=== PATIENT | female | born 1965 | race Caucasian/White ===

== ENCOUNTER → 2023-10-05 08:08 | Outpatient (CLI) | payer OTHER, SELFPAY ==
--- NOTE | 2023-10-05 | DI.MG.S_ITS ---
BILATERAL DIGITAL SCREENING MAMMOGRAM 3D/2D WITH CAD WITH AUGMENTATION: 10/05/2023 CLINICAL: Routine screening. Comparison is made to exams dated: 11/25/2018 mammogram, 03/15/2017 mammogram, and 07/02/2015 mammogram - Outside facility. There are scattered areas of fibroglandular density in both breasts (category b / 25%-50% glandular tissue). Current study was also evaluated with a Computer Aided Detection (CAD) system. Bilateral breast implants are stable. No significant masses, calcifications, or other findings are seen in either breast. There has been no significant interval change. IMPRESSION: NEGATIVE There is no mammographic evidence of malignancy. A 1 year screening mammogram is recommended. Based on the Tyrer Cuzick model (a risk assessment model) the patient's lifetime risk is 6.7% and her 10 year risk is 2.3%. According to the ACR, ACS, and NCCN guidelines, an annual breast MRI exam along with mammogram is recommended if the patient's lifetime risk is 20% or greater. This exam was interpreted at Station ID: [id number]. NOTE: For mammograms, a report in lay terms will be sent to the patient. Approximately 15% of breast malignancies will not be visualized mammographically. In the management of a palpable breast mass, a negative mammogram must not discourage biopsy of a clinically suspicious lesion. Electronically Signed By: Faye zaragoza/shay:10/05/2023 10:05:35 letter sent: Normal Exam ACR BI-RADS Category 1: Negative [id number]
== END ==
PROVIDERS: Referring Provider Family Medicine; Visit Provider Family Medicine
DX: Z12.31 Encounter for screening mammogram for malignant neoplasm of breast (principal); R92.323 Mammographic fibroglandular density, bilateral breasts
CPT/HCPCS: 77063; 77067

== ENCOUNTER 2024-06-08 14:30 | Outpatient (RCR) | payer OTHER, SELFPAY ==
--- NOTE | 2024-05-22 15:22 | PT.OIE ---
Current Diagnoses Sprain of unspecified ligament of left ankle, subsequent encounter (05/22/24) Visit Care Team Role Provider Type Stew Desai MD Attending Provider Non-Staff Family Provider Primary Care Provider Referring Provider Specialty: Family Practice Address: [facility] [address], [address] Email: Physical Therapy Initial Evaluation PT-OP-A Visit Information Start: 05/19/24 12:53 Freq: Status: Active Protocol: Document 05/22/24 07:30 NM (Rec: 05/22/24 08:15 NM [id number]) Out-Patient Physical Therapy Visit Information Visit Information Visit Type Initial Evaluation Visit Start Time 07:33 Visit Stop Time 08:13 Visit Number Evaluation Information Evaluation Date 05/22/24 Precautions Precautions PMH fracture of L 5th metatarsal PT-OP-B Current Condition Start: 05/19/24 12:53 Freq: Status: Active Protocol: Document 05/22/24 07:30 NM (Rec: 05/22/24 08:15 NM [id number]) Current Condition History of Current Condition Onset Date March 06, 2024 Current Complaints pain, walking, standing History of Current Condition Pt presents with L 5th met fracture. She has not worn the boot in 2 weeks. Had has repeat imaging. Pt fractured her foot after walking off of a curb at a [employer] tour in [place] with inversion motion. Pt had to walk a mile back to her hotel following fall. Pt iced and wrap. Pt was assessed for fracture 03/15 with imaging. She was placed in a boot, but pt declined using crutches. Pt has been wearing hiking boots. 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 Pt has had repeat imaging, showing healing; however, pt reports that she was told to continue wearing the boot if she has pain. She has not been wearing boot for about 2 weeks. Pt is a and lives alone. She reports that she is having difficulty with R hip pain (sitting, driving) s/ p wearing boot, walking (w/o boot), standing. Pt has several stairs in her home but reports no difficulty with stairs. Pt walked 2 airports yesterday in girlie boots, which have caused increased pain. PT-OP-C Subjective Start: 05/19/24 12:53 Freq: Status: Active Protocol: Document 05/22/24 07:30 NM (Rec: 05/22/24 08:15 NM [id number]) OP-PT Subjective Patient Comments Patient Comments pt consents to participate in evaluation Patient Questionnaires Foot & Ankle Ability Measure- ADL and Sports FAAM-ADL Score 64/84 FAAM-Sport Score 14/32 Lower Extremity Functional Scale LEFS Score 67/80 OP-PT Pain Assessment Location L foot/ankle Pain Location Details 5th metatarsal, 4th metatarsal dorsally Intensity 4 Scale Used Numeric (0 - 10) Description Aching,Pressure,Sharp Description- Other nagging, nail in my foot Frequency Frequent Pain Aggravating Factors ADL's,Activity,Exercise, Standing,Walking,Stair Climbing Pain Alleviating Factors Cold,Massage,Elevation,Rest PT-OP-D Balance Start: 05/19/24 12:53 Freq: Status: Active Protocol: Document 05/22/24 07:30 NM (Rec: 05/22/24 08:15 NM [id number]) Balance Tests Single Limb Standing Single Limb- Right 30 sec Single Limb- Left 5 sec; pain reported at lateral foot PT-OP-F Manual Assessment Start: 05/19/24 12:53 Freq: Status: Active Protocol: Document 05/22/24 07:30 NM (Rec: 05/22/24 08:15 NM [id number]) Manual Assessments Soft Tissue Assessment Soft Tissue Mobility Assessment Tightness of L heel cords, R hip flexors Joint Mobility Assessment Joint Mobility Assessment Decreased mobility of L foot ( midfoot, forefoot) and ankle talocrural/subtalar. Mild limitations in R hip mobility with capsular restrictions Other Manual Assessments Other Manual Assessments Vibration testing: first tested RLE for comparison, then LLE along 5th met, medial malleolus, 1st toe, dorsal foot, lateral malleolus. Pt reports L foot feels different but reports no increase in pain especially along fracture site PT-OP-G Mobility & Gait Start: 05/19/24 12:53 Freq: Status: Active Protocol: Document 05/22/24 07:30 NM (Rec: 05/22/24 16:52 NM [id number]) OP Gait Assessment Gait Gait Assistance Required: Independent Distance (Feet) 150 Gait Deviations General Gait Pattern Antalgic,Decreased Feet Clearance Factors Limiting Gait Function Factors Limiting Gait Function Decreased Activity Tolerance, Decreased Strength,Limited Range of Motion,Pain Comments Gait Comments Limited L stance time, demos tendency to place weight off of lateral L foot PT-OP-H Neuro Start: 05/19/24 12:53 Freq: Status: Active Protocol: Document 05/22/24 07:30 NM (Rec: 05/22/24 08:15 NM [id number]) Sensation Evaluation Comments Summary Comments BLE intact equally to light touch sensation until L dorsal foot, mild hypersensitivity of L foot PT-OP-J Posture/Palpation/Skin Start: 05/19/24 12:53 Freq: Status: Active Protocol: Document 05/22/24 07:30 NM (Rec: 05/22/24 16:52 NM [id number]) Posture Evaluation Position Standing Head/C-Spine Posture Forward Head Shoulder Posture (L) Rounded,(R) Rounded Pelvis Posture Anteriorly Tilted Hip Posture (L) Externally Rotated,(R) Externally Rotated Knee Posture (L) Genu Valgus,(R) Genu Valgus Ankle/Foot Posture (L) Calcaneal Eversion,(R) Calcaneal Eversion Foot Arch (L) Medium Arch,(R) Medium Arch Palpation Assessment Location L ankle/foot Palpation Details Tenderness along 2-4 metatarsal heads, no tenderness along 5th metatarsal or along head No tenderness along proximal tibia/fibula, no tenderness along medial or lateral malleolus Skin Assessment Other Assessments Skin Assessment Comments Mild red dot along 5th metatarsal near head PT-OP-K Range of Motion Start: 05/19/24 12:53 Freq: Status: Active Protocol: Document 05/22/24 07:30 NM (Rec: 05/22/24 08:15 NM [id number]) Hip Goniometric Range of Motion Hip Right Internal Rotation 28 External Rotation 25 Left Internal Rotation 30 External Rotation 25 Ankle and Foot Goniometric Range of Motion Ankle and Foot Right Dorsiflexion with Knee Flexed 5 Plantarflexion 50 Inversion 30 Eversion 10 Left Dorsiflexion with Knee Flexed 3 Plantarflexion 35 Inversion 30 Eversion 10 Comments pain with PF PT-OP-L Special Tests Start: 09/27/24 12:53 Freq: Status: Active Protocol: Document 05/22/24 07:30 NM (Rec: 05/22/24 08:15 NM [id number]) Special Tests Hip Special Tests Ok Test Results + FADIR Test Results - TATA Test Results - PT-OP-M Strength Start: 05/19/24 12:53 Freq: Status: Active Protocol: Document 05/22/24 07:30 NM (Rec: 05/22/24 08:15 NM [id number]) Hip Strength Hip Manual Muscle Testing Right Flexion (L2) 4 Good Extension (S1) 4 Good Abduction 4 Good Adduction 4 Good External Rotation 4 Good Internal Rotation 4 Good Left Flexion (L2) 4- Good- Extension (S1) 4- Good- Abduction 4- Good- Adduction 4- Good- External Rotation 4- Good- Internal Rotation 4- Good- Knee Strength Knee Manual Muscle Testing Right Flexion (S2) 4 Good Extension (L3) 4 Good Left Flexion (S2) 4 Good Extension (L3) 4 Good Ankle/Foot Strength Ankle and Foot Manual Muscle Testing Right Dorsiflexion (L4) 4 Good Plantarflexion (S1) 3 Fair Inversion 4 Good Eversion (S1) 4 Good Comments 5 single leg heel Left Dorsiflexion (L4) 4- Good- Plantarflexion (S1) 3+ Fair+ Inversion 4- Good- Eversion (S1) 3+ Fair+ Comments 1 heel raise w/ pain mild pain with eversion due to hand placement PT-OP-Q Treatments Start: 05/19/24 12:53 Freq: Status: Active Protocol: Document 05/22/24 07:30 NM (Rec: 05/22/24 08:15 NM [id number]) Therapeutic Exercises Supine Exercises ok stretch Supine Exercise Name HEP Side bilateral Reps/Minutes 60 ea Sitting Exercises ankle ABC Sitting Exercise Name HEP Side left Reps/Minutes 1 set Comments pain free but limited ROM ankle dorsiflexion Sitting Exercise Name HEP Side left Equipment Used level 1 band Reps/Minutes 20 Comments cued for form ankle plantarflexion Sitting Exercise Name HEP Side left Equipment Used level 1 band Reps/Minutes 20 Comments cued for form Self-Care/Home Management Treatment Education Patient Education Joint Protection,Pain Management Other Education Educated on appropriate shoe wear, including limiting heels /booties or other shoes that cause increased weightbearing on metatarsals. Recommended shoes with wider toe boxes that disperse weight evenly throughout foot PT-OP-T Assessment and Plan Start: 05/19/24 12:53 Freq: Status: Active Protocol: Document 05/22/24 07:30 NM (Rec: 05/22/24 08:15 NM [id number]) Physical Therapy Assessment Rehab Potential Rehabilitation Potential Good Evaluation Complexity Number of Personal Factors/Comorbidities 1-2 Number of Body Systems Impaired 1-2 Clinical Presentation at Evaluation Stable Impairments Impairments Activity Tolerance,Balance, Functional Activities, Functional Mobility,Gait, Integument,Pain,Posture,ROM, Soft Tissue Mobility,Strength, Transfers Other Concerns Barriers to Rehabilitation Pt works for the [employer] (formerly [employer]) and has to stand/ ambulate repetitively for her job. Pt also has a wedding this upcoming weekend (first weekend of May) and is planning to wear heels or platform shoes. Pt lost her in June 2023. Goals Four Impairment standing and ambulation time limited at work Short Term Goal (STG) Pt will be able to perform at least 10 steps up/down on standard stair with LLE leading without increase in L foot/ankle pain in order to demonstrate improved functional mobility STG Duration 5 weeks Senior Living Goal (LTG) Pt will report pain in L foot/ ankle <2/10 while performing standing or ambulation-related activities > 1 hour at work LTG Duration 10 weeks Three Impairment L ankle strength limited Short Term Goal (STG) Pt will be able to perform at least 10 B heel raises without increase in L foot/ankle pain or compensation in order to demonstrate improved strength for gait and weightbearing on her L foot STG Duration 6 weeks Senior Living Goal (LTG) If appropriate, pt will be able to perform at least 5 single leg heel raises bilaterally without increase in L foot/ankle pain in order to demonstrate improved strength for gait and weightbearing LTG Duration 10 weeks Two Impairment L ankle ROM limited Short Term Goal (STG) Pt will improve L ankle dorsiflexion AROM to greater than 5 deg for improved foot clearance during gait STG Duration 5 weeks Senior Living Goal (LTG) Pt will improve L ankle dorsiflexion to at least 8 deg AROM and L ankle plantarflexion to at least 40 deg in order to normalize mobility for gait LTG Duration 10 weeks One Impairment not performing HEP [employer] Goal (LTG) Pt will report compliance with HEP at least 3x/wk in order to maintain progression with PT and transition to maintenance program LTG Duration 10 weeks Assessment Summary Assessment Pt is a 59 y.o. female presenting with L foot pain following fracture of 5th metatasal in February 2024. Pt recently had updated imaging showing good healing of fracture site. No pain with palpation along fracture site or with vibration testing. However, pt does have pain along 2-4th metatarsals, which is new following a recent trip where pt was ambulating in the airport with booties. She is still occasionally wearing the immobilizer boot at home for pain management. Pt has global limitations in L ankle mobility and strength. She also has mild limitations in overall LLE strength. Pt has mild increase in L lateral foot pain with SLS. Pt's R hip pain is likely related to the L foot being placed in a boot for several weeks to allow healing; symptoms are consistent with both muscle tightness and weakness but she does have capsular restrictions. PT educated pt on exam findings and plan of care. If pt continues to have increased pain at her metatarsals with weightbearing over next several weeks, she will be referred back for repeat imaging and further assessment. Pt would benefit from skilled PT for L ankle mobility, strength, and proprioception in order to improve ability to perform job requirements and overall functional mobility. Physical Therapy Plan Frequency and Duration Frequency of Treatment 2x/Week Duration of treatment (weeks) 10 Plan of Care Start Date 05/22/24 Plan of Care End Date 08/04/24 Therapeutic Interventions Therapeutic Interventions Balance Training,Gait Training ,Home Exercise Program,Joint Mobilizations,Manual Therapy, Neuromuscular Re-education, Orthotic/Prosthetic Management ,Patient/Caregiver Education, Self-Care/Home Management, Sensory Integration,Soft Tissue Mobilization,Taping, Therapeutic Activities, Therapeutic Exercises Modalities Cold Pack/Ice Massage,Electric Stimulation,Hot Packs Next Visit Focus/Plan Next Note Type Treatment Note Next Visit Plan review HEP begin squat training. sidelying hip abduction, ankle 4 way, BAPS, SLS with support
--- NOTE | 2024-05-22 15:25 | PT.OIE ---
Current Diagnoses Pain in left ankle and joints of left foot (05/22/24) Stiffness of right hip, not elsewhere classified (05/22/24) Stiffness of left ankle, not elsewhere classified (05/22/24) Stiffness of left foot, not elsewhere classified (05/22/24) Other lack of coordination (05/22/24) Weakness (05/22/24) Sprain of unspecified ligament of left ankle, subsequent encounter (05/22/24) Visit Care Team Role Provider Type Stew Desai MD Attending Provider Non-Staff Family Provider Primary Care Provider Referring Provider Specialty: Family Practice Address: [address] [place] [address], [id number] Email: Physical Therapy Initial Evaluation PT-OP-A Visit Information Start: 05/19/24 12:53 Freq: Status: Active Protocol: Document 05/22/24 07:30 NM (Rec: 05/22/24 08:15 NM [id number]) Out-Patient Physical Therapy Visit Information Visit Information Visit Type Initial Evaluation Visit Start Time 07:33 Visit Stop Time 08:13 Visit Number Evaluation Information Evaluation Date 05/22/24 Precautions Precautions PMH fracture of L 5th metatarsal PT-OP-B Current Condition Start: 05/19/24 12:53 Freq: Status: Active Protocol: Document 05/22/24 07:30 NM (Rec: 05/22/24 08:15 NM [id number]) Current Condition History of Current Condition Onset Date March 06, 2024 Current Complaints pain, walking, standing History of Current Condition Pt presents with L 5th met fracture. She has not worn the boot in 2 weeks. Had has repeat imaging. Pt fractured her foot after walking off of a curb at a [employer] tour in [place] with inversion motion. Pt had to walk a mile back to her hotel following fall. Pt iced and wrap. Pt was assessed for fracture 03/15 with imaging. She was placed in a boot, but pt declined using crutches. Pt has been wearing hiking boots. 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 Pt has had repeat imaging, showing healing; however, pt reports that she was told to continue wearing the boot if she has pain. She has not been wearing boot for about 2 weeks. Pt is a and lives alone. She reports that she is having difficulty with R hip pain (sitting, driving) s/ p wearing boot, walking (w/o boot), standing. Pt has several stairs in her home but reports no difficulty with stairs. Pt walked 2 airports yesterday in girlie boots, which have caused increased pain. PT-OP-C Subjective Start: 05/19/24 12:53 Freq: Status: Active Protocol: Document 05/22/24 07:30 NM (Rec: 05/22/24 08:15 NM [id number]) OP-PT Subjective Patient Comments Patient Comments pt consents to participate in evaluation Patient Questionnaires Foot & Ankle Ability Measure- ADL and Sports FAAM-ADL Score 64/84 FAAM-Sport Score 14/32 Lower Extremity Functional Scale LEFS Score 67/80 OP-PT Pain Assessment Location L foot/ankle Pain Location Details 5th metatarsal, 4th metatarsal dorsally Intensity 4 Scale Used Numeric (0 - 10) Description Aching,Pressure,Sharp Description- Other nagging, nail in my foot Frequency Frequent Pain Aggravating Factors ADL's,Activity,Exercise, Standing,Walking,Stair Climbing Pain Alleviating Factors Cold,Massage,Elevation,Rest PT-OP-D Balance Start: 05/19/24 12:53 Freq: Status: Active Protocol: Document 05/22/24 07:30 NM (Rec: 05/22/24 08:15 NM [id number]) Balance Tests Single Limb Standing Single Limb- Right 30 sec Single Limb- Left 5 sec; pain reported at lateral foot PT-OP-F Manual Assessment Start: 05/19/24 12:53 Freq: Status: Active Protocol: Document 05/22/24 07:30 NM (Rec: 05/22/24 08:15 NM [id number]) Manual Assessments Soft Tissue Assessment Soft Tissue Mobility Assessment Tightness of L heel cords, R hip flexors Joint Mobility Assessment Joint Mobility Assessment Decreased mobility of L foot ( midfoot, forefoot) and ankle talocrural/subtalar. Mild limitations in R hip mobility with capsular restrictions Other Manual Assessments Other Manual Assessments Vibration testing: first tested RLE for comparison, then LLE along 5th met, medial malleolus, 1st toe, dorsal foot, lateral malleolus. Pt reports L foot feels different but reports no increase in pain especially along fracture site PT-OP-G Mobility & Gait Start: 05/19/24 12:53 Freq: Status: Active Protocol: Document 05/22/24 07:30 NM (Rec: 05/22/24 16:52 NM [id number]) OP Gait Assessment Gait Gait Assistance Required: Independent Distance (Feet) 150 Gait Deviations General Gait Pattern Antalgic,Decreased Feet Clearance Factors Limiting Gait Function Factors Limiting Gait Function Decreased Activity Tolerance, Decreased Strength,Limited Range of Motion,Pain Comments Gait Comments Limited L stance time, demos tendency to place weight off of lateral L foot PT-OP-H Neuro Start: 05/19/24 12:53 Freq: Status: Active Protocol: Document 05/22/24 07:30 NM (Rec: 05/22/24 08:15 NM [id number]) Sensation Evaluation Comments Summary Comments BLE intact equally to light touch sensation until L dorsal foot, mild hypersensitivity of L foot PT-OP-J Posture/Palpation/Skin Start: 05/19/24 12:53 Freq: Status: Active Protocol: Document 05/22/24 07:30 NM (Rec: 05/22/24 16:52 NM [id number]) Posture Evaluation Position Standing Head/C-Spine Posture Forward Head Shoulder Posture (L) Rounded,(R) Rounded Pelvis Posture Anteriorly Tilted Hip Posture (L) Externally Rotated,(R) Externally Rotated Knee Posture (L) Genu Valgus,(R) Genu Valgus Ankle/Foot Posture (L) Calcaneal Eversion,(R) Calcaneal Eversion Foot Arch (L) Medium Arch,(R) Medium Arch Palpation Assessment Location L ankle/foot Palpation Details Tenderness along 2-4 metatarsal heads, no tenderness along 5th metatarsal or along head No tenderness along proximal tibia/fibula, no tenderness along medial or lateral malleolus Skin Assessment Other Assessments Skin Assessment Comments Mild red dot along 5th metatarsal near head PT-OP-K Range of Motion Start: 05/19/24 12:53 Freq: Status: Active Protocol: Document 05/22/24 07:30 NM (Rec: 05/22/24 08:15 NM [id number]) Hip Goniometric Range of Motion Hip Right Internal Rotation 28 External Rotation 25 Left Internal Rotation 30 External Rotation 25 Ankle and Foot Goniometric Range of Motion Ankle and Foot Right Dorsiflexion with Knee Flexed 5 Plantarflexion 50 Inversion 30 Eversion 10 Left Dorsiflexion with Knee Flexed 3 Plantarflexion 35 Inversion 30 Eversion 10 Comments pain with PF PT-OP-L Special Tests Start: 05/19/24 12:53 Freq: Status: Active Protocol: Document 05/22/24 07:30 NM (Rec: 05/22/24 08:15 NM [id number]) Special Tests Hip Special Tests Ok Test Results + NUVIAIR Test Results - TATA Test Results - PT-OP-M Strength Start: 05/19/24 12:53 Freq: Status: Active Protocol: Document 05/22/24 07:30 NM (Rec: 05/22/24 08:15 NM [id number]) Hip Strength Hip Manual Muscle Testing Right Flexion (L2) 4 Good Extension (S1) 4 Good Abduction 4 Good Adduction 4 Good External Rotation 4 Good Internal Rotation 4 Good Left Flexion (L2) 4- Good- Extension (S1) 4- Good- Abduction 4- Good- Adduction 4- Good- External Rotation 4- Good- Internal Rotation 4- Good- Knee Strength Knee Manual Muscle Testing Right Flexion (S2) 4 Good Extension (L3) 4 Good Left Flexion (S2) 4 Good Extension (L3) 4 Good Ankle/Foot Strength Ankle and Foot Manual Muscle Testing Right Dorsiflexion (L4) 4 Good Plantarflexion (S1) 3 Fair Inversion 4 Good Eversion (S1) 4 Good Comments 5 single leg heel Left Dorsiflexion (L4) 4- Good- Plantarflexion (S1) 3+ Fair+ Inversion 4- Good- Eversion (S1) 3+ Fair+ Comments 1 heel raise w/ pain mild pain with eversion due to hand placement PT-OP-Q Treatments Start: 05/19/24 12:53 Freq: Status: Active Protocol: Document 05/22/24 07:30 NM (Rec: 05/22/24 08:15 NM [id number]) Therapeutic Exercises Supine Exercises ok stretch Supine Exercise Name HEP Side bilateral Reps/Minutes 60 ea Sitting Exercises ankle ABC Sitting Exercise Name HEP Side left Reps/Minutes 1 set Comments pain free but limited ROM ankle dorsiflexion Sitting Exercise Name HEP Side left Equipment Used level 1 band Reps/Minutes 20 Comments cued for form ankle plantarflexion Sitting Exercise Name HEP Side left Equipment Used level 1 band Reps/Minutes 20 Comments cued for form Self-Care/Home Management Treatment Education Patient Education Joint Protection,Pain Management Other Education Educated on appropriate shoe wear, including limiting heels /booties or other shoes that cause increased weightbearing on metatarsals. Recommended shoes with wider toe boxes that disperse weight evenly throughout foot PT-OP-T Assessment and Plan Start: 05/19/24 12:53 Freq: Status: Active Protocol: Document 05/22/24 07:30 NM (Rec: 05/22/24 08:15 NM [id number]) Physical Therapy Assessment Rehab Potential Rehabilitation Potential Good Evaluation Complexity Number of Personal Factors/Comorbidities 1-2 Number of Body Systems Impaired 1-2 Clinical Presentation at Evaluation Stable Impairments Impairments Activity Tolerance,Balance, Functional Activities, Functional Mobility,Gait, Integument,Pain,Posture,ROM, Soft Tissue Mobility,Strength, Transfers Other Concerns Barriers to Rehabilitation Pt works for the [employer] and has to stand/ ambulate repetitively for her job. Pt also has a wedding this upcoming weekend (first weekend of May) and is planning to wear heels or platform shoes. Pt lost her in June 2023. Goals Four Impairment standing and ambulation time limited at work Short Term Goal (STG) Pt will be able to perform at least 10 steps up/down on standard stair with LLE leading without increase in L foot/ankle pain in order to demonstrate improved functional mobility STG Duration 5 weeks Proof Inspector Goal (LTG) Pt will report pain in L foot/ ankle <2/10 while performing standing or ambulation-related activities > 1 hour at work LTG Duration 10 weeks Three Impairment L ankle strength limited Short Term Goal (STG) Pt will be able to perform at least 10 B heel raises without increase in L foot/ankle pain or compensation in order to demonstrate improved strength for gait and weightbearing on her L foot STG Duration 6 weeks Intermediate Goal (LTG) If appropriate, pt will be able to perform at least 5 single leg heel raises bilaterally without increase in L foot/ankle pain in order to demonstrate improved strength for gait and weightbearing LTG Duration 10 weeks Two Impairment L ankle ROM limited Short Term Goal (STG) Pt will improve L ankle dorsiflexion AROM to greater than 5 deg for improved foot clearance during gait STG Duration 5 weeks Proof Inspector Goal (LTG) Pt will improve L ankle dorsiflexion to at least 8 deg AROM and L ankle plantarflexion to at least 40 deg in order to normalize mobility for gait LTG Duration 10 weeks One Impairment not performing HEP Proof Inspector Goal (LTG) Pt will report compliance with HEP at least 3x/wk in order to maintain progression with PT and transition to maintenance program LTG Duration 10 weeks Assessment Summary Assessment Pt is a 59 y.o. female presenting with L foot pain following fracture of 5th metatasal in February 2024. Pt recently had updated imaging showing good healing of fracture site. No pain with palpation along fracture site or with vibration testing. However, pt does have pain along 2-4th metatarsals, which is new following a recent trip where pt was ambulating in the airport with booties. She is still occasionally wearing the immobilizer boot at home for pain management. Pt has global limitations in L ankle mobility and strength. She also has mild limitations in overall LLE strength. Pt has mild increase in L lateral foot pain with SLS. Pt's R hip pain is likely related to the L foot being placed in a boot for several weeks to allow healing; symptoms are consistent with both muscle tightness and weakness but she does have capsular restrictions. PT educated pt on exam findings and plan of care. If pt continues to have increased pain at her metatarsals with weightbearing over next several weeks, she will be referred back for repeat imaging and further assessment. Pt would benefit from skilled PT for L ankle mobility, strength, and proprioception in order to improve ability to perform job requirements and overall functional mobility. Physical Therapy Plan Frequency and Duration Frequency of Treatment 2x/Week Duration of treatment (weeks) 10 Plan of Care Start Date 05/22/24 Plan of Care End Date 08/04/24 Therapeutic Interventions Therapeutic Interventions Balance Training,Gait Training ,Home Exercise Program,Joint Mobilizations,Manual Therapy, Neuromuscular Re-education, Orthotic/Prosthetic Management ,Patient/Caregiver Education, Self-Care/Home Management, Sensory Integration,Soft Tissue Mobilization,Taping, Therapeutic Activities, Therapeutic Exercises Modalities Cold Pack/Ice Massage,Electric Stimulation,Hot Packs Other Therapeutic Interventions Grade I-II mobilizations to 5th metatarsal due to previous fracture Next Visit Focus/Plan Next Note Type Treatment Note Next Visit Plan review HEP begin squat training. sidelying hip abduction, ankle 4 way, BAPS, SLS with support
--- NOTE | 2024-05-24 10:41 | PT.OTN ---
Current Diagnoses Pain in left ankle and joints of left foot (05/24/24) Stiffness of right hip, not elsewhere classified (05/24/24) Stiffness of left ankle, not elsewhere classified (05/24/24) Stiffness of left foot, not elsewhere classified (05/24/24) Other lack of coordination (05/24/24) Weakness (05/24/24) Sprain of unspecified ligament of left ankle, subsequent encounter (05/24/24) Physical Therapy Treatment Note PT-OP-A Visit Information Start: 05/19/24 12:53 Freq: Status: Active Protocol: Document 05/24/24 07:25 NM (Rec: 05/24/24 08:16 NM [id number]) Out-Patient Physical Therapy Visit Information Visit Information Visit Type Treatment Note Visit Start Time 07:34 Visit Stop Time 08:14 Visit Number Evaluation Information Evaluation Date 05/22/24 Precautions Precautions PMH fracture of L 5th metatarsal PT-OP-B Current Condition Start: 05/19/24 12:53 Freq: Status: Active Protocol: Document 05/22/24 07:30 NM (Rec: 05/22/24 08:15 NM [id number]) Current Condition History of Current Condition Onset Date March 06, 2024 Current Complaints pain, walking, standing History of Current Condition Pt presents with L 5th met fracture. She has not worn the boot in 2 weeks. Had has repeat imaging. Pt fractured her foot after walking off of a curb at a [employer] tour in [place] with inversion motion. Pt had to walk a mile back to her hotel following fall. Pt iced and wrap. Pt was assessed for fracture 03/15 with imaging. She was placed in a boot, but pt declined using crutches. Pt has been wearing hiking boots. 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 Pt has had repeat imaging, showing healing; however, pt reports that she was told to continue wearing the boot if she has pain. She has not been wearing boot for about 2 weeks. Pt is a and lives alone. She reports that she is having difficulty with R hip pain (sitting, driving) s/ p wearing boot, walking (w/o boot), standing. Pt has several stairs in her home but reports no difficulty with stairs. Pt walked 2 airports yesterday in girlie boots, which have caused increased pain. PT-OP-C Subjective Start: 05/19/24 12:53 Freq: Status: Active Protocol: Document 05/24/24 07:25 NM (Rec: 05/24/24 08:16 NM [id number]) OP-PT Subjective Patient Comments Patient Comments Pt reports that she rode her bike yesterday, states her foot feels weird and is still a little swollen. She has been painting a trellis in her yard, reports that her foot does not hurt because WB more on R foot, but states was WB off to avoid L. Has not been wearing the boot. Reports 3/10 starting pain with a dull ache PT-OP-D Balance Start: 05/19/24 12:53 Freq: Status: Active Protocol: Document 05/22/24 07:30 NM (Rec: 05/22/24 08:15 NM [id number]) Balance Tests Single Limb Standing Single Limb- Right 30 sec Single Limb- Left 5 sec; pain reported at lateral foot PT-OP-F Manual Assessment Start: 05/19/24 12:53 Freq: Status: Active Protocol: Document 05/22/24 07:30 NM (Rec: 05/22/24 08:15 NM [id number]) Manual Assessments Soft Tissue Assessment Soft Tissue Mobility Assessment Tightness of L heel cords, R hip flexors Joint Mobility Assessment Joint Mobility Assessment Decreased mobility of L foot ( midfoot, forefoot) and ankle talocrural/subtalar. Mild limitations in R hip mobility with capsular restrictions Other Manual Assessments Other Manual Assessments Vibration testing: first tested RLE for comparison, then LLE along 5th met, medial malleolus, 1st toe, dorsal foot, lateral malleolus. Pt reports L foot feels different but reports no increase in pain especially along fracture site PT-OP-G Mobility & Gait Start: 05/19/24 12:53 Freq: Status: Active Protocol: Document 05/22/24 07:30 NM (Rec: 05/22/24 16:52 NM [id number]) OP Gait Assessment Gait Gait Assistance Required: Independent Distance (Feet) 150 Gait Deviations General Gait Pattern Antalgic,Decreased Feet Clearance Factors Limiting Gait Function Factors Limiting Gait Function Decreased Activity Tolerance, Decreased Strength,Limited Range of Motion,Pain Comments Gait Comments Limited L stance time, demos tendency to place weight off of lateral L foot PT-OP-H Neuro Start: 05/19/24 12:53 Freq: Status: Active Protocol: Document 05/22/24 07:30 NM (Rec: 05/22/24 08:15 NM [id number]) Sensation Evaluation Comments Summary Comments BLE intact equally to light touch sensation until L dorsal foot, mild hypersensitivity of L foot PT-OP-J Posture/Palpation/Skin Start: 05/19/24 12:53 Freq: Status: Active Protocol: Document 05/22/24 07:30 NM (Rec: 05/22/24 16:52 NM [id number]) Posture Evaluation Position Standing Head/C-Spine Posture Forward Head Shoulder Posture (L) Rounded,(R) Rounded Pelvis Posture Anteriorly Tilted Hip Posture (L) Externally Rotated,(R) Externally Rotated Knee Posture (L) Genu Valgus,(R) Genu Valgus Ankle/Foot Posture (L) Calcaneal Eversion,(R) Calcaneal Eversion Foot Arch (L) Medium Arch,(R) Medium Arch Palpation Assessment Location L ankle/foot Palpation Details Tenderness along 2-4 metatarsal heads, no tenderness along 5th metatarsal or along head No tenderness along proximal tibia/fibula, no tenderness along medial or lateral malleolus Skin Assessment Other Assessments Skin Assessment Comments Mild red dot along 5th metatarsal near head PT-OP-K Range of Motion Start: 05/19/24 12:53 Freq: Status: Active Protocol: Document 05/22/24 07:30 NM (Rec: 05/22/24 08:15 NM [id number]) Hip Goniometric Range of Motion Hip Right Internal Rotation 28 External Rotation 25 Left Internal Rotation 30 External Rotation 25 Ankle and Foot Goniometric Range of Motion Ankle and Foot Right Dorsiflexion with Knee Flexed 5 Plantarflexion 50 Inversion 30 Eversion 10 Left Dorsiflexion with Knee Flexed 3 Plantarflexion 35 Inversion 30 Eversion 10 Comments pain with PF PT-OP-L Special Tests Start: 05/19/24 12:53 Freq: Status: Active Protocol: Document 05/22/24 07:30 NM (Rec: 05/22/24 08:15 NM [id number]) Special Tests Hip Special Tests Ok Test Results + FADIR Test Results - TATA Test Results - PT-OP-M Strength Start: 05/19/24 12:53 Freq: Status: Active Protocol: Document 05/22/24 07:30 NM (Rec: 05/22/24 08:15 NM [id number]) Hip Strength Hip Manual Muscle Testing Right Flexion (L2) 4 Good Extension (S1) 4 Good Abduction 4 Good Adduction 4 Good External Rotation 4 Good Internal Rotation 4 Good Left Flexion (L2) 4- Good- Extension (S1) 4- Good- Abduction 4- Good- Adduction 4- Good- External Rotation 4- Good- Internal Rotation 4- Good- Knee Strength Knee Manual Muscle Testing Right Flexion (S2) 4 Good Extension (L3) 4 Good Left Flexion (S2) 4 Good Extension (L3) 4 Good Ankle/Foot Strength Ankle and Foot Manual Muscle Testing Right Dorsiflexion (L4) 4 Good Plantarflexion (S1) 3 Fair Inversion 4 Good Eversion (S1) 4 Good Comments 5 single leg heel Left Dorsiflexion (L4) 4- Good- Plantarflexion (S1) 3+ Fair+ Inversion 4- Good- Eversion (S1) 3+ Fair+ Comments 1 heel raise w/ pain mild pain with eversion due to hand placement PT-OP-Q Treatments Start: 05/19/24 12:53 Freq: Status: Active Protocol: Document 05/24/24 07:25 NM (Rec: 05/24/24 08:16 NM [id number]) Therapeutic Exercises Supine Exercises SLR Side bilateral Resistance AROM Reps/Minutes 2x10 ea w/ 2 hold Comments cued quad control throughout ROM ok stretch Supine Exercise Name HEP review Side bilateral Reps/Minutes 60 ea Prone Exercises hip extension Side bilateral Reps/Minutes 2x10 w/ 1 hold Comments cued stable hips Sidelying Exercises hip abduction Sidelying Exercise Name with hip IR and ankle DF Side bilateral Resistance AROM Reps/Minutes 2x15 ea w/ 2 hold Comments cued alignment and hip stability; R more challenging Sitting Exercises ankle inversion Side left Resistance level 1 band Reps/Minutes 20 Comments pain free ankle eversion Side left Resistance level 1 band Reps/Minutes 20 Comments pain free ankle ABC Sitting Exercise Name HEP review Side left Reps/Minutes 1 set Comments pain free but limited ROM; cued control and to limit hip/ knee comp ankle dorsiflexion Sitting Exercise Name HEP review Side left Resistance level 1 band Reps/Minutes 20 Comments cued for form ankle plantarflexion Sitting Exercise Name HEP review Side left Resistance level 1 band Reps/Minutes 20 Comments cued for form Manual Therapy Treatment Consent Patient gave verbal consent for manual Yes treatment Soft Tissue Mobilization L foot/ankle Body Location peroneals, calf, superficial swelling management of foot, plantar fascia Mobilization Type Rolling Body Position Hooklying Comments Superficial > moderate intensity. Tenderness initially along peroneals, posterior to fibular, reduced with gentle soft tissue mobilization Joint Mobilizations L foot/ankle Joint 1st toe, talocrural Direction dorsal/volar, abd/add; Post Grade II Body Position Hooklying Reps/Duration 15; 2x30 Comments Abd and volar/dorsal of 1st toe. Talocrural for pain management and to initiate mobility of ankle joint, PT modified hand position for pt comfort along lateral ankle PT-OP-T Assessment and Plan Start: 05/19/24 12:53 Freq: Status: Active Protocol: Document 05/24/24 07:25 NM (Rec: 05/24/24 08:16 NM [id number]) Physical Therapy Assessment Goals Four Impairment standing and ambulation time limited at work Short Term Goal (STG) Pt will be able to perform at least 10 steps up/down on standard stair with LLE leading without increase in L foot/ankle pain in order to demonstrate improved functional mobility STG Duration 5 weeks [facility] Goal (LTG) Pt will report pain in L foot/ ankle <2/10 while performing standing or ambulation-related activities > 1 hour at work LTG Duration 10 weeks Three Impairment L ankle strength limited Short Term Goal (STG) Pt will be able to perform at least 10 B heel raises without increase in L foot/ankle pain or compensation in order to demonstrate improved strength for gait and weightbearing on her L foot STG Duration 6 weeks [facility] Goal (LTG) If appropriate, pt will be able to perform at least 5 single leg heel raises bilaterally without increase in L foot/ankle pain in order to demonstrate improved strength for gait and weightbearing LTG Duration 10 weeks Two Impairment L ankle ROM limited Short Term Goal (STG) Pt will improve L ankle dorsiflexion AROM to greater than 5 deg for improved foot clearance during gait STG Duration 5 weeks [facility] Goal (LTG) Pt will improve L ankle dorsiflexion to at least 8 deg AROM and L ankle plantarflexion to at least 40 deg in order to normalize mobility for gait LTG Duration 10 weeks One Impairment not performing HEP [facility] Goal (LTG) Pt will report compliance with HEP at least 3x/wk in order to maintain progression with PT and transition to maintenance program LTG Duration 10 weeks Assessment Summary Assessment Pt tolerated session well. Continues to have mild swelling along L 5th metatarsal and mild tenderness . Initiated NWB global hip strengthening to promote proximal strength for better distal stability. Reviewed ankle HEP from evaluation, cued only for form. Initiated ankle inversion and eversion. Cued moderately for control on ankle ABCs and ankle inversion/eversion to limit hip compensations. Pt responds well to gentle soft tissue mobilization, especially of peroneals. Pt would benefit from skilled PT for L ankle/ foot strengthening in order to improve standing tolerance for work and stability for gait. Physical Therapy Plan Frequency and Duration Frequency of Treatment 2x/Week Duration of treatment (weeks) 10 Plan of Care Start Date 05/22/24 Plan of Care End Date 08/04/24 Therapeutic Interventions Therapeutic Interventions Balance Training,Gait Training ,Home Exercise Program,Joint Mobilizations,Manual Therapy, Neuromuscular Re-education, Orthotic/Prosthetic Management ,Patient/Caregiver Education, Self-Care/Home Management, Sensory Integration,Soft Tissue Mobilization,Taping, Therapeutic Activities, Therapeutic Exercises Modalities Cold Pack/Ice Massage,Electric Stimulation,Hot Packs Other Therapeutic Interventions Grade I-II mobilizations to 5th metatarsal due to previous fracture Next Visit Focus/Plan Next Note Type Treatment Note Next Visit Plan Review sidelying hip abd, prone hip ext. Add ankle inversion and eversion. BAPS begin STS/squat training as long as pain free. sidelying hip abduction, ankle proprioception. progress to standing glute, quad, ankle strength and proprioception Manual tx: ankle mob, 1st toe mob; avoid 5th toe mob d/t hx of fracture
--- NOTE | 2024-06-06 08:17 | PT.OTN ---
Current Diagnoses Pain in left ankle and joints of left foot (06/06/24) Stiffness of right hip, not elsewhere classified (06/06/24) Stiffness of left ankle, not elsewhere classified (06/06/24) Stiffness of left foot, not elsewhere classified (06/06/24) Other lack of coordination (06/06/24) Weakness (06/06/24) Sprain of unspecified ligament of left ankle, subsequent encounter (06/06/24) Physical Therapy Treatment Note PT-OP-A Visit Information Start: 05/19/24 12:53 Freq: Status: Active Protocol: Document 06/06/24 07:27 NM (Rec: 06/06/24 08:17 NM [id number]) Out-Patient Physical Therapy Visit Information Visit Information Visit Type Treatment Note Visit Start Time 07:32 Visit Stop Time 08:14 Visit Number Evaluation Information Evaluation Date 05/22/24 Precautions Precautions PMH fracture of L 5th metatarsal PT-OP-B Current Condition Start: 05/19/24 12:53 Freq: Status: Active Protocol: Document 05/22/24 07:30 NM (Rec: 05/22/24 08:15 NM [id number]) Current Condition History of Current Condition Onset Date March 06, 2024 Current Complaints pain, walking, standing History of Current Condition Pt presents with L 5th met fracture. She has not worn the boot in 2 weeks. Had has repeat imaging. Pt fractured her foot after walking off of a curb at a [employer] tour in [place] with inversion motion. Pt had to walk a mile back to her hotel following fall. Pt iced and wrap. Pt was assessed for fracture 03/15 with imaging. She was placed in a boot, but pt declined using crutches. Pt has been wearing hiking boots. 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 Pt has had repeat imaging, showing healing; however, pt reports that she was told to continue wearing the boot if she has pain. She has not been wearing boot for about 2 weeks. Pt is a and lives alone. She reports that she is having difficulty with R hip pain (sitting, driving) s/ p wearing boot, walking (w/o boot), standing. Pt has several stairs in her home but reports no difficulty with stairs. Pt walked [place] airports yesterday in girlie boots, which have caused increased pain. PT-OP-C Subjective Start: 05/19/24 12:53 Freq: Status: Active Protocol: Document 06/06/24 07:27 NM (Rec: 06/06/24 08:17 NM [id number]) OP-PT Subjective Patient Comments Patient Comments Pt reports that her foot was doing well until this morning. States has been driving a lot . Reports that her L hip hurt. She states that she is feeling the side of her foot again, states that more sensitive. She reports it's cracking, snapping, and popping but not painful. She reports that she has not been doing the exercises correct, states then makes up her own. Not tender to touch, no pain with WB or walking. 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 No difficulty with work related tasks due to L foot. PT-OP-D Balance Start: 05/19/24 12:53 Freq: Status: Active Protocol: Document 05/22/24 07:30 NM (Rec: 05/22/24 08:15 NM [id number]) Balance Tests Single Limb Standing Single Limb- Right 30 sec Single Limb- Left 5 sec; pain reported at lateral foot PT-OP-F Manual Assessment Start: 05/19/24 12:53 Freq: Status: Active Protocol: Document 05/22/24 07:30 NM (Rec: 05/22/24 08:15 NM [id number]) Manual Assessments Soft Tissue Assessment Soft Tissue Mobility Assessment Tightness of L heel cords, R hip flexors Joint Mobility Assessment Joint Mobility Assessment Decreased mobility of L foot ( midfoot, forefoot) and ankle talocrural/subtalar. Mild limitations in R hip mobility with capsular restrictions Other Manual Assessments Other Manual Assessments Vibration testing: first tested RLE for comparison, then LLE along 5th met, medial malleolus, 1st toe, dorsal foot, lateral malleolus. Pt reports L foot feels different but reports no increase in pain especially along fracture site PT-OP-G Mobility & Gait Start: 05/19/24 12:53 Freq: Status: Active Protocol: Document 05/22/24 07:30 NM (Rec: 05/22/24 16:52 NM [id number]) OP Gait Assessment Gait Gait Assistance Required: Independent Distance (Feet) 150 Gait Deviations General Gait Pattern Antalgic,Decreased Feet Clearance Factors Limiting Gait Function Factors Limiting Gait Function Decreased Activity Tolerance, Decreased Strength,Limited Range of Motion,Pain Comments Gait Comments Limited L stance time, demos tendency to place weight off of lateral L foot PT-OP-H Neuro Start: 05/19/24 12:53 Freq: Status: Active Protocol: Document 05/22/24 07:30 NM (Rec: 05/22/24 08:15 NM [id number]) Sensation Evaluation Comments Summary Comments BLE intact equally to light touch sensation until L dorsal foot, mild hypersensitivity of L foot PT-OP-J Posture/Palpation/Skin Start: 05/19/24 12:53 Freq: Status: Active Protocol: Document 05/22/24 07:30 NM (Rec: 05/22/24 16:52 NM [id number]) Posture Evaluation Position Standing Head/C-Spine Posture Forward Head Shoulder Posture (L) Rounded,(R) Rounded Pelvis Posture Anteriorly Tilted Hip Posture (L) Externally Rotated,(R) Externally Rotated Knee Posture (L) Genu Valgus,(R) Genu Valgus Ankle/Foot Posture (L) Calcaneal Eversion,(R) Calcaneal Eversion Foot Arch (L) Medium Arch,(R) Medium Arch Palpation Assessment Location L ankle/foot Palpation Details Tenderness along 2-4 metatarsal heads, no tenderness along 5th metatarsal or along head No tenderness along proximal tibia/fibula, no tenderness along medial or lateral malleolus Skin Assessment Other Assessments Skin Assessment Comments Mild red dot along 5th metatarsal near head PT-OP-K Range of Motion Start: 05/19/24 12:53 Freq: Status: Active Protocol: Document 05/22/24 07:30 NM (Rec: 05/22/24 08:15 NM [id number]) Hip Goniometric Range of Motion Hip Right Internal Rotation 28 External Rotation 25 Left Internal Rotation 30 External Rotation 25 Ankle and Foot Goniometric Range of Motion Ankle and Foot Right Dorsiflexion with Knee Flexed 5 Plantarflexion 50 Inversion 30 Eversion 10 Left Dorsiflexion with Knee Flexed 3 Plantarflexion 35 Inversion 30 Eversion 10 Comments pain with PF PT-OP-L Special Tests Start: 05/19/24 12:53 Freq: Status: Active Protocol: Document 05/22/24 07:30 NM (Rec: 05/22/24 08:15 NM [id number]) Special Tests Hip Special Tests Ok Test Results + FADIR Test Results - TATA Test Results - PT-OP-M Strength Start: 05/19/24 12:53 Freq: Status: Active Protocol: Document 05/22/24 07:30 NM (Rec: 05/22/24 08:15 NM [id number]) Hip Strength Hip Manual Muscle Testing Right Flexion (L2) 4 Good Extension (S1) 4 Good Abduction 4 Good Adduction 4 Good External Rotation 4 Good Internal Rotation 4 Good Left Flexion (L2) 4- Good- Extension (S1) 4- Good- Abduction 4- Good- Adduction 4- Good- External Rotation 4- Good- Internal Rotation 4- Good- Knee Strength Knee Manual Muscle Testing Right Flexion (S2) 4 Good Extension (L3) 4 Good Left Flexion (S2) 4 Good Extension (L3) 4 Good Ankle/Foot Strength Ankle and Foot Manual Muscle Testing Right Dorsiflexion (L4) 4 Good Plantarflexion (S1) 3 Fair Inversion 4 Good Eversion (S1) 4 Good Comments 5 single leg heel Left Dorsiflexion (L4) 4- Good- Plantarflexion (S1) 3+ Fair+ Inversion 4- Good- Eversion (S1) 3+ Fair+ Comments 1 heel raise w/ pain mild pain with eversion due to hand placement PT-OP-Q Treatments Start: 05/19/24 12:53 Freq: Status: Active Protocol: Document 06/06/24 07:27 NM (Rec: 06/06/24 08:17 NM [id number]) Therapeutic Exercises Sitting Exercises ankle inversion Sitting Exercise Name HEP review Side left Resistance level 2 band Reps/Minutes 2x10 Comments pain free ankle eversion Sitting Exercise Name HEP review Side left Resistance level 1 band > level 2 band Reps/Minutes 10, 20 w/ level 2 band Comments pain free; cued to limit hip movement ankle dorsiflexion Sitting Exercise Name HEP review Side left Resistance level 2 band Reps/Minutes 20 Comments cued for form Standing Exercises calf stretch Standing Exercise Name 1. gastrocnemius, 2. soleus Side bilateral Reps/Minutes 60 ea heel raise Standing Exercise Name trial: 1. gastrocnemius, 2. soleus Side bilateral Equipment Used hand support at wall for balance Reps/Minutes 2x10 ea Comments pain free Other Exercises soft tissue mobilization Other Exercise Name calf-peroneals Side left Equipment Used tennis ball Reps/Minutes 60 Comments trigger point release Manual Therapy Treatment Consent Patient gave verbal consent for manual Yes treatment Soft Tissue Mobilization L foot/ankle Body Location peroneals, calf, tibialis Mobilization Type Rolling Intensity/Depth Moderate Body Position Hooklying Comments Tenderness initially along peroneals and calf interfaces, posterior to fibular, reduced with gentle soft tissue mobilization Joint Mobilizations L foot/ankle Joint talocrural Direction post Grade III Body Position Hooklying Reps/Duration 4x30 Comments Talocrural for pain management and to initiate mobility of ankle joint, PT modified hand position for pt comfort along lateral ankle PT-OP-T Assessment and Plan Start: 05/19/24 12:53 Freq: Status: Active Protocol: Document 06/06/24 07:27 NM (Rec: 06/06/24 08:17 NM [id number]) Physical Therapy Assessment Goals Four Impairment standing and ambulation time limited at work Short Term Goal (STG) Pt will be able to perform at least 10 steps up/down on standard stair with LLE leading without increase in L foot/ankle pain in order to demonstrate improved functional mobility STG Duration 5 weeks [employer] Goal (LTG) Pt will report pain in L foot/ ankle <2/10 while performing standing or ambulation-related activities > 1 hour at work LTG Duration 10 weeks Three Impairment L ankle strength limited Short Term Goal (STG) Pt will be able to perform at least 10 B heel raises without increase in L foot/ankle pain or compensation in order to demonstrate improved strength for gait and weightbearing on her L foot STG Duration 6 weeks [facility] Goal (LTG) If appropriate, pt will be able to perform at least 5 single leg heel raises bilaterally without increase in L foot/ankle pain in order to demonstrate improved strength for gait and weightbearing LTG Duration 10 weeks Two Impairment L ankle ROM limited Short Term Goal (STG) Pt will improve L ankle dorsiflexion AROM to greater than 5 deg for improved foot clearance during gait STG Duration 5 weeks [facility] Goal (LTG) Pt will improve L ankle dorsiflexion to at least 8 deg AROM and L ankle plantarflexion to at least 40 deg in order to normalize mobility for gait LTG Duration 10 weeks One Impairment not performing HEP [employer] Goal (LTG) Pt will report compliance with HEP at least 3x/wk in order to maintain progression with PT and transition to maintenance program LTG Duration 10 weeks Assessment Summary Assessment Pt tolerates increase in resistance for ankle strengthening. Requires set up cues for ankle inversion/ eversion/dorsiflexion; videos on phone for improved carryover with HEP. Trialed standing calf stretch and heel raises with gastrocnemius and soleus. Moderate cueing for neutral foot position. Good feedback without pain in L foot. No pain at end of sessions. Has 4 deg of L ankle dorsiflexion at end of session, good feedback to ankle mobilizations. Hand position adjusted for comfort. Pt would benefit from skilled PT for L ankle mobility and strength in order to improve gait mechanics, standing tolerance, and stability during gait/standing ADLs. Physical Therapy Plan Frequency and Duration Frequency of Treatment 2x/Week Duration of treatment (weeks) 10 Plan of Care Start Date 05/22/24 Plan of Care End Date 08/04/24 Therapeutic Interventions Therapeutic Interventions Balance Training,Gait Training ,Home Exercise Program,Joint Mobilizations,Manual Therapy, Neuromuscular Re-education, Orthotic/Prosthetic Management ,Patient/Caregiver Education, Self-Care/Home Management, Sensory Integration,Soft Tissue Mobilization,Taping, Therapeutic Activities, Therapeutic Exercises Modalities Cold Pack/Ice Massage,Electric Stimulation,Hot Packs Other Therapeutic Interventions Grade I-II mobilizations to 5th metatarsal due to previous fracture Next Visit Focus/Plan Next Note Type Treatment Note Next Visit Plan Add foot intrinsics with towel (foot scrunches, ankle inv/ev w/ towel vs marble). Progress ankle strengthening in standing, w/ band for inv/ev. Initiate wall squat vs STS/ squat training as long as pain free. side step, ankle proprioception. progress to standing glute, quad, ankle strength and proprioception Manual tx: ankle mob, 1st toe mob; avoid 5th toe mob d/t hx of fracture
--- NOTE | 2024-06-06 10:42 | PT.OTN ---
Current Diagnoses Pain in left ankle and joints of left foot (06/06/24) Stiffness of right hip, not elsewhere classified (06/06/24) Stiffness of left ankle, not elsewhere classified (06/06/24) Stiffness of left foot, not elsewhere classified (06/06/24) Other lack of coordination (06/06/24) Weakness (06/06/24) Sprain of unspecified ligament of left ankle, subsequent encounter (06/06/24) Physical Therapy Treatment Note PT-OP-A Visit Information Start: 05/19/24 12:53 Freq: Status: Active Protocol: Document 06/06/24 07:27 NM (Rec: 06/06/24 08:17 NM [id number]) Out-Patient Physical Therapy Visit Information Visit Information Visit Type Treatment Note Visit Start Time 07:32 Visit Stop Time 08:14 Visit Number Evaluation Information Evaluation Date 05/22/24 Precautions Precautions PMH fracture of L 5th metatarsal PT-OP-B Current Condition Start: 05/19/24 12:53 Freq: Status: Active Protocol: Document 05/22/24 07:30 NM (Rec: 05/22/24 08:15 NM [id number]) Current Condition History of Current Condition Onset Date March 06, 2024 Current Complaints pain, walking, standing History of Current Condition Pt presents with L 5th met fracture. She has not worn the boot in 2 weeks. Had has repeat imaging. Pt fractured her foot after walking off of a curb at a [employer] [place] with inversion motion. Pt had to walk a mile back to her hotel following fall. Pt iced and wrap. Pt was assessed for fracture 03/15 with imaging. She was placed in a boot, but pt declined using crutches. Pt has been wearing hiking boots. 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 Pt has had repeat imaging, showing healing; however, pt reports that she was told to continue wearing the boot if she has pain. She has not been wearing boot for about 2 weeks. Pt is a and lives alone. She reports that she is having difficulty with R hip pain (sitting, driving) s/ p wearing boot, walking (w/o boot), standing. Pt has several stairs in her home but reports no difficulty with stairs. Pt walked 2 airports yesterday in girlie boots, which have caused increased pain. PT-OP-C Subjective Start: 05/19/24 12:53 Freq: Status: Active Protocol: Document 06/06/24 07:27 NM (Rec: 06/06/24 08:17 NM [id number]) OP-PT Subjective Patient Comments Patient Comments Pt reports that her foot was doing well until this morning. States has been driving a lot . Reports that her L hip hurt. She states that she is feeling the side of her foot again, states that more sensitive. She reports it's cracking, snapping, and popping but not painful. She reports that she has not been doing the exercises correct, states then makes up her own. Not tender to touch, no pain with WB or walking. 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 No difficulty with work related tasks due to L foot. PT-OP-D Balance Start: 05/19/24 12:53 Freq: Status: Active Protocol: Document 05/22/24 07:30 NM (Rec: 05/22/24 08:15 NM [id number]) Balance Tests Single Limb Standing Single Limb- Right 30 sec Single Limb- Left 5 sec; pain reported at lateral foot PT-OP-F Manual Assessment Start: 05/19/24 12:53 Freq: Status: Active Protocol: Document 05/22/24 07:30 NM (Rec: 05/22/24 08:15 NM [id number]) Manual Assessments Soft Tissue Assessment Soft Tissue Mobility Assessment Tightness of L heel cords, R hip flexors Joint Mobility Assessment Joint Mobility Assessment Decreased mobility of L foot ( midfoot, forefoot) and ankle talocrural/subtalar. Mild limitations in R hip mobility with capsular restrictions Other Manual Assessments Other Manual Assessments Vibration testing: first tested RLE for comparison, then LLE along 5th met, medial malleolus, 1st toe, dorsal foot, lateral malleolus. Pt reports L foot feels different but reports no increase in pain especially along fracture site PT-OP-G Mobility & Gait Start: 05/19/24 12:53 Freq: Status: Active Protocol: Document 05/22/24 07:30 NM (Rec: 05/22/24 16:52 NM [id number]) OP Gait Assessment Gait Gait Assistance Required: Independent Distance (Feet) 150 Gait Deviations General Gait Pattern Antalgic,Decreased Feet Clearance Factors Limiting Gait Function Factors Limiting Gait Function Decreased Activity Tolerance, Decreased Strength,Limited Range of Motion,Pain Comments Gait Comments Limited L stance time, demos tendency to place weight off of lateral L foot PT-OP-H Neuro Start: 05/19/24 12:53 Freq: Status: Active Protocol: Document 05/22/24 07:30 NM (Rec: 05/22/24 08:15 NM [id number]) Sensation Evaluation Comments Summary Comments BLE intact equally to light touch sensation until L dorsal foot, mild hypersensitivity of L foot PT-OP-J Posture/Palpation/Skin Start: 05/19/24 12:53 Freq: Status: Active Protocol: Document 05/22/24 07:30 NM (Rec: 05/22/24 16:52 NM [id number]) Posture Evaluation Position Standing Head/C-Spine Posture Forward Head Shoulder Posture (L) Rounded,(R) Rounded Pelvis Posture Anteriorly Tilted Hip Posture (L) Externally Rotated,(R) Externally Rotated Knee Posture (L) Genu Valgus,(R) Genu Valgus Ankle/Foot Posture (L) Calcaneal Eversion,(R) Calcaneal Eversion Foot Arch (L) Medium Arch,(R) Medium Arch Palpation Assessment Location L ankle/foot Palpation Details Tenderness along 2-4 metatarsal heads, no tenderness along 5th metatarsal or along head No tenderness along proximal tibia/fibula, no tenderness along medial or lateral malleolus Skin Assessment Other Assessments Skin Assessment Comments Mild red dot along 5th metatarsal near head PT-OP-K Range of Motion Start: 05/19/24 12:53 Freq: Status: Active Protocol: Document 05/22/24 07:30 NM (Rec: 05/22/24 08:15 NM [id number]) Hip Goniometric Range of Motion Hip Right Internal Rotation 28 External Rotation 25 Left Internal Rotation 30 External Rotation 25 Ankle and Foot Goniometric Range of Motion Ankle and Foot Right Dorsiflexion with Knee Flexed 5 Plantarflexion 50 Inversion 30 Eversion 10 Left Dorsiflexion with Knee Flexed 3 Plantarflexion 35 Inversion 30 Eversion 10 Comments pain with PF PT-OP-L Special Tests Start: 05/19/24 12:53 Freq: Status: Active Protocol: Document 05/22/24 07:30 NM (Rec: 05/22/24 08:15 NM [id number]) Special Tests Hip Special Tests Ok Test Results + FADIR Test Results - TATA Test Results - PT-OP-M Strength Start: 05/19/24 12:53 Freq: Status: Active Protocol: Document 05/22/24 07:30 NM (Rec: 05/22/24 08:15 NM [id number]) Hip Strength Hip Manual Muscle Testing Right Flexion (L2) 4 Good Extension (S1) 4 Good Abduction 4 Good Adduction 4 Good External Rotation 4 Good Internal Rotation 4 Good Left Flexion (L2) 4- Good- Extension (S1) 4- Good- Abduction 4- Good- Adduction 4- Good- External Rotation 4- Good- Internal Rotation 4- Good- Knee Strength Knee Manual Muscle Testing Right Flexion (S2) 4 Good Extension (L3) 4 Good Left Flexion (S2) 4 Good Extension (L3) 4 Good Ankle/Foot Strength Ankle and Foot Manual Muscle Testing Right Dorsiflexion (L4) 4 Good Plantarflexion (S1) 3 Fair Inversion 4 Good Eversion (S1) 4 Good Comments 5 single leg heel Left Dorsiflexion (L4) 4- Good- Plantarflexion (S1) 3+ Fair+ Inversion 4- Good- Eversion (S1) 3+ Fair+ Comments 1 heel raise w/ pain mild pain with eversion due to hand placement PT-OP-Q Treatments Start: 05/19/24 12:53 Freq: Status: Active Protocol: Document 06/06/24 07:27 NM (Rec: 06/06/24 08:17 NM [id number]) Therapeutic Exercises Sitting Exercises ankle inversion Sitting Exercise Name HEP review Side left Resistance level 2 band Reps/Minutes 2x10 Comments pain free ankle eversion Sitting Exercise Name HEP review Side left Resistance level 1 band > level 2 band Reps/Minutes 10, 20 w/ level 2 band Comments pain free; cued to limit hip movement ankle dorsiflexion Sitting Exercise Name HEP review Side left Resistance level 2 band Reps/Minutes 20 Comments cued for form Standing Exercises calf stretch Standing Exercise Name 1. gastrocnemius, 2. soleus Side bilateral Reps/Minutes 60 ea heel raise Standing Exercise Name trial: 1. gastrocnemius, 2. soleus Side bilateral Equipment Used hand support at wall for balance Reps/Minutes 2x10 ea Comments pain free Other Exercises soft tissue mobilization Other Exercise Name calf-peroneals Side left Equipment Used tennis ball Reps/Minutes 60 Comments trigger point release Manual Therapy Treatment Consent Patient gave verbal consent for manual Yes treatment Soft Tissue Mobilization L foot/ankle Body Location peroneals, calf, tibialis Mobilization Type Rolling Intensity/Depth Moderate Body Position Hooklying Comments Tenderness initially along peroneals and calf interfaces, posterior to fibular, reduced with gentle soft tissue mobilization Joint Mobilizations L foot/ankle Joint talocrural Direction post Grade III Body Position Hooklying Reps/Duration 4x30 Comments Talocrural for pain management and to initiate mobility of ankle joint, PT modified hand position for pt comfort along lateral ankle Self-Care/Home Management Treatment Education Patient Education Pain Management Other Education Education on desensitization techniques for L foot: starting with softer fabrics ( e.g. cotton, tissue, cloth) progressing to more rougher fabrics as sensation improving PT-OP-T Assessment and Plan Start: 05/19/24 12:53 Freq: Status: Active Protocol: Document 06/06/24 07:27 NM (Rec: 06/06/24 08:17 NM [id number]) Physical Therapy Assessment Goals Four Impairment standing and ambulation time limited at work Short Term Goal (STG) Pt will be able to perform at least 10 steps up/down on standard stair with LLE leading without increase in L foot/ankle pain in order to demonstrate improved functional mobility STG Duration 5 weeks [employer] Goal (LTG) Pt will report pain in L foot/ ankle <2/10 while performing standing or ambulation-related activities > 1 hour at work LTG Duration 10 weeks Three Impairment L ankle strength limited Short Term Goal (STG) Pt will be able to perform at least 10 B heel raises without increase in L foot/ankle pain or compensation in order to demonstrate improved strength for gait and weightbearing on her L foot STG Duration 6 weeks [employer] Goal (LTG) If appropriate, pt will be able to perform at least 5 single leg heel raises bilaterally without increase in L foot/ankle pain in order to demonstrate improved strength for gait and weightbearing LTG Duration 10 weeks Two Impairment L ankle ROM limited Short Term Goal (STG) Pt will improve L ankle dorsiflexion AROM to greater than 5 deg for improved foot clearance during gait STG Duration 5 weeks Halfway Goal (LTG) Pt will improve L ankle dorsiflexion to at least 8 deg AROM and L ankle plantarflexion to at least 40 deg in order to normalize mobility for gait LTG Duration 10 weeks One Impairment not performing HEP [employer] Goal (LTG) Pt will report compliance with HEP at least 3x/wk in order to maintain progression with PT and transition to maintenance program LTG Duration 10 weeks Assessment Summary Assessment Pt tolerates increase in resistance for ankle strengthening. HEP review at pt request to improve form and carryover. Requires set up cues for ankle inversion/ eversion/dorsiflexion; videos on phone for improved carryover with HEP. Trialed standing calf stretch and heel raises with gastrocnemius and soleus. Moderate cueing for neutral foot position. Good feedback without pain in L foot. No pain at end of sessions. Has 4 deg of L ankle dorsiflexion at end of session, good feedback to ankle mobilizations. Hand position adjusted for comfort. Pt would benefit from skilled PT for L ankle mobility and strength in order to improve gait mechanics, standing tolerance, and stability during gait/standing ADLs. Physical Therapy Plan Frequency and Duration Frequency of Treatment 2x/Week Duration of treatment (weeks) 10 Plan of Care Start Date 05/22/24 Plan of Care End Date 08/04/24 Therapeutic Interventions Therapeutic Interventions Balance Training,Gait Training ,Home Exercise Program,Joint Mobilizations,Manual Therapy, Neuromuscular Re-education, Orthotic/Prosthetic Management ,Patient/Caregiver Education, Self-Care/Home Management, Sensory Integration,Soft Tissue Mobilization,Taping, Therapeutic Activities, Therapeutic Exercises Modalities Cold Pack/Ice Massage,Electric Stimulation,Hot Packs Other Therapeutic Interventions Grade I-II mobilizations to 5th metatarsal due to previous fracture Next Visit Focus/Plan Next Note Type Treatment Note Next Visit Plan Add foot intrinsics with towel (foot scrunches, ankle inv/ev w/ towel vs marble). Progress ankle strengthening in standing, w/ band for inv/ev. Initiate wall squat vs STS/ squat training as long as pain free. side step, ankle proprioception. progress to standing glute, quad, ankle strength and proprioception Manual tx: ankle mob, 1st toe mob; avoid 5th toe mob d/t hx of fracture
--- NOTE | 2024-06-08 16:01 | PT.OTN ---
Current Diagnoses Pain in left ankle and joints of left foot (06/08/24) Stiffness of right hip, not elsewhere classified (06/08/24) Stiffness of left ankle, not elsewhere classified (06/08/24) Stiffness of left foot, not elsewhere classified (06/08/24) Other lack of coordination (06/08/24) Weakness (06/08/24) Sprain of unspecified ligament of left ankle, subsequent encounter (06/08/24) Physical Therapy Treatment Note PT-OP-A Visit Information Start: 05/19/24 12:53 Freq: Status: Active Protocol: Document 06/08/24 14:37 SW (Rec: 06/08/24 16:01 SW [id number]) Out-Patient Physical Therapy Visit Information Visit Information Visit Type Treatment Note Precautions Precautions PMH fracture of L 5th metatarsal PT-OP-B Current Condition Start: 05/19/24 12:53 Freq: Status: Active Protocol: Document 05/22/24 07:30 NM (Rec: 05/22/24 08:15 NM [id number]) Current Condition History of Current Condition Onset Date March 06, 2024 Current Complaints pain, walking, standing History of Current Condition Pt presents with L 5th met fracture. She has not worn the boot in 2 weeks. Had has repeat imaging. Pt fractured her foot after walking off of a curb at a [employer] tour in [place] with inversion motion. Pt had to walk a mile back to her hotel following fall. Pt iced and wrap. Pt was assessed for fracture 03/15 with imaging. She was placed in a boot, but pt declined using crutches. Pt has been wearing hiking boots. 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 Pt has had repeat imaging, showing healing; however, pt reports that she was told to continue wearing the boot if she has pain. She has not been wearing boot for about 2 weeks. Pt is a and lives alone. She reports that she is having difficulty with R hip pain (sitting, driving) s/ p wearing boot, walking (w/o boot), standing. Pt has several stairs in her home but reports no difficulty with stairs. Pt walked 2 airports yesterday in [place], which have caused increased pain. PT-OP-C Subjective Start: 05/19/24 12:53 Freq: Status: Active Protocol: Document 06/08/24 14:37 SW (Rec: 06/08/24 16:01 SW [id number]) OP-PT Subjective Patient Comments Patient Comments Pt reports lump on bottom of foot with pain between sessions, felt a popping feeling, lump went down, pain has improved since. PT-OP-D Balance Start: 05/19/24 12:53 Freq: Status: Active Protocol: Document 05/22/24 07:30 NM (Rec: 05/22/24 08:15 NM [id number]) Balance Tests Single Limb Standing Single Limb- Right 30 sec Single Limb- Left 5 sec; pain reported at lateral foot PT-OP-F Manual Assessment Start: 05/19/24 12:53 Freq: Status: Active Protocol: Document 05/22/24 07:30 NM (Rec: 05/22/24 08:15 NM [id number]) Manual Assessments Soft Tissue Assessment Soft Tissue Mobility Assessment Tightness of L heel cords, R hip flexors Joint Mobility Assessment Joint Mobility Assessment Decreased mobility of L foot ( midfoot, forefoot) and ankle talocrural/subtalar. Mild limitations in R hip mobility with capsular restrictions Other Manual Assessments Other Manual Assessments Vibration testing: first tested RLE for comparison, then LLE along 5th met, medial malleolus, 1st toe, dorsal foot, lateral malleolus. Pt reports L foot feels different but reports no increase in pain especially along fracture site PT-OP-G Mobility & Gait Start: 05/19/24 12:53 Freq: Status: Active Protocol: Document 05/22/24 07:30 NM (Rec: 05/22/24 16:52 NM [id number]) OP Gait Assessment Gait Gait Assistance Required: Independent Distance (Feet) 150 Gait Deviations General Gait Pattern Antalgic,Decreased Feet Clearance Factors Limiting Gait Function Factors Limiting Gait Function Decreased Activity Tolerance, Decreased Strength,Limited Range of Motion,Pain Comments Gait Comments Limited L stance time, demos tendency to place weight off of lateral L foot PT-OP-H Neuro Start: 05/19/24 12:53 Freq: Status: Active Protocol: Document 05/22/24 07:30 NM (Rec: 05/22/24 08:15 NM [id number]) Sensation Evaluation Comments Summary Comments BLE intact equally to light touch sensation until L dorsal foot, mild hypersensitivity of L foot PT-OP-J Posture/Palpation/Skin Start: 05/19/24 12:53 Freq: Status: Active Protocol: Document 05/22/24 07:30 NM (Rec: 05/22/24 16:52 NM [id number]) Posture Evaluation Position Standing Head/C-Spine Posture Forward Head Shoulder Posture (L) Rounded,(R) Rounded Pelvis Posture Anteriorly Tilted Hip Posture (L) Externally Rotated,(R) Externally Rotated Knee Posture (L) Genu Valgus,(R) Genu Valgus Ankle/Foot Posture (L) Calcaneal Eversion,(R) Calcaneal Eversion Foot Arch (L) Medium Arch,(R) Medium Arch Palpation Assessment Location L ankle/foot Palpation Details Tenderness along 2-4 metatarsal heads, no tenderness along 5th metatarsal or along head No tenderness along proximal tibia/fibula, no tenderness along medial or lateral malleolus Skin Assessment Other Assessments Skin Assessment Comments Mild red dot along 5th metatarsal near head PT-OP-K Range of Motion Start: 05/19/24 12:53 Freq: Status: Active Protocol: Document 05/22/24 07:30 NM (Rec: 05/22/24 08:15 NM [id number]) Hip Goniometric Range of Motion Hip Right Internal Rotation 28 External Rotation 25 Left Internal Rotation 30 External Rotation 25 Ankle and Foot Goniometric Range of Motion Ankle and Foot Right Dorsiflexion with Knee Flexed 5 Plantarflexion 50 Inversion 30 Eversion 10 Left Dorsiflexion with Knee Flexed 3 Plantarflexion 35 Inversion 30 Eversion 10 Comments pain with PF PT-OP-L Special Tests Start: 05/19/24 12:53 Freq: Status: Active Protocol: Document 05/22/24 07:30 NM (Rec: 05/22/24 08:15 NM [id number]) Special Tests Hip Special Tests Ok Test Results + FADIR Test Results - TATA Test Results - PT-OP-M Strength Start: 05/19/24 12:53 Freq: Status: Active Protocol: Document 05/22/24 07:30 NM (Rec: 05/22/24 08:15 NM [id number]) Hip Strength Hip Manual Muscle Testing Right Flexion (L2) 4 Good Extension (S1) 4 Good Abduction 4 Good Adduction 4 Good External Rotation 4 Good Internal Rotation 4 Good Left Flexion (L2) 4- Good- Extension (S1) 4- Good- Abduction 4- Good- Adduction 4- Good- External Rotation 4- Good- Internal Rotation 4- Good- Knee Strength Knee Manual Muscle Testing Right Flexion (S2) 4 Good Extension (L3) 4 Good Left Flexion (S2) 4 Good Extension (L3) 4 Good Ankle/Foot Strength Ankle and Foot Manual Muscle Testing Right Dorsiflexion (L4) 4 Good Plantarflexion (S1) 3 Fair Inversion 4 Good Eversion (S1) 4 Good Comments 5 single leg heel Left Dorsiflexion (L4) 4- Good- Plantarflexion (S1) 3+ Fair+ Inversion 4- Good- Eversion (S1) 3+ Fair+ Comments 1 heel raise w/ pain mild pain with eversion due to hand placement PT-OP-Q Treatments Start: 05/19/24 12:53 Freq: Status: Active Protocol: Document 06/08/24 14:37 (Rec: 06/08/24 16:01 [id number]) Therapeutic Exercises Sitting Exercises ankle inversion Sitting Exercise Name HEP review Side left Resistance level 2 band Reps/Minutes 2x10 Comments pain free ankle eversion Sitting Exercise Name HEP review Side left Resistance level 1 band > level 2 band Reps/Minutes 10, 20 w/ level 2 band Comments pain free; cued to limit hip movement ankle dorsiflexion Sitting Exercise Name HEP review Side left Resistance level 2 band Reps/Minutes 20 Comments cued for form Standing Exercises Wall squat Standing Exercise Name Wall squat (issued [facility]) Side bilateral Resistance AROM Equipment Used wall Reps/Minutes 2x10 Comments pain free range, cues for knee alignment calf stretch Standing Exercise Name 1. gastrocnemius, 2. soleus Side bilateral Reps/Minutes 60 ea heel raise Standing Exercise Name Heel raises Side bilateral Equipment Used hand support at wall for balance Reps/Minutes 2x10 ea Comments pain free Other Exercises SLS Other Exercise Name intrinsic strength and proprioception (issued HEP HO) Side left Equipment Used @ [employer], [employer]OTH PRINTING INSPECTOR prn Reps/Minutes 2x30 Comments CLOTH PRINTING INSPECTOR>fingertip touch Manual Therapy Treatment Consent Patient gave verbal consent for manual Yes treatment Soft Tissue Mobilization L foot/ankle Body Location peroneals, calf, tibialis Mobilization Type Rolling Intensity/Depth Moderate Body Position Hooklying Comments tolerated well, gentle soft tissue mobiliztion, decreased tension post PT-OP-T Assessment and Plan Start: 05/19/24 12:53 Freq: Status: Active Protocol: Document 06/08/24 14:37 (Rec: 06/08/24 16:01 [id number]) Physical Therapy Assessment Goals Four Impairment standing and ambulation time limited at work Short Term Goal (STG) Pt will be able to perform at least 10 steps up/down on standard stair with LLE leading without increase in L foot/ankle pain in order to demonstrate improved functional mobility STG Duration 5 weeks [facility] Goal (LTG) Pt will report pain in L foot/ ankle <2/10 while performing standing or ambulation-related activities > 1 hour at work LTG Duration 10 weeks Three Impairment L ankle strength limited Short Term Goal (STG) Pt will be able to perform at least 10 B heel raises without increase in L foot/ankle pain or compensation in order to demonstrate improved strength for gait and weightbearing on her L foot STG Duration 6 weeks [facility] Goal (LTG) If appropriate, pt will be able to perform at least 5 single leg heel raises bilaterally without increase in L foot/ankle pain in order to demonstrate improved strength for gait and weightbearing LTG Duration 10 weeks Two Impairment L ankle ROM limited Short Term Goal (STG) Pt will improve L ankle dorsiflexion AROM to greater than 5 deg for improved foot clearance during gait STG Duration 5 weeks Manager [employer] Device Goal (LTG) Pt will improve L ankle dorsiflexion to at least 8 deg AROM and L ankle plantarflexion to at least 40 deg in order to normalize mobility for gait LTG Duration 10 weeks One Impairment not performing HEP Manager Medical Device Goal (LTG) Pt will report compliance with HEP at least 3x/wk in order to maintain progression with PT and transition to maintenance program LTG Duration 10 weeks Assessment Summary Assessment Reviewed ankle strengthening for form and tolerance, pt c/o some pain with ankle eversion end reps, decreased reps. Pt education on HEP exercises, they should not cause pain or increase pain, if any of them do, discontinue the exercises causing pain until followup for modification or discontinuation. Initiated wall squats, good tolerance, pt reports muscle fatigue, denies pain, cues for knee alignment and comfortable squat depth. Initiated standing single leg stance with UE support prn for strength and increased proprioception, ankle strategy engaged, educated pt on importance of using UE support as needed for safety. Overall pt tolerated session well, with some muscle fatigue, no pain with new exercises initiated today. Plan to followup on pt tolerance next session and progress as able. Physical Therapy Plan Frequency and Duration Frequency of Treatment 2x/Week Duration of treatment (weeks) 10 Plan of Care Start Date 05/22/24 Plan of Care End Date 08/04/24 Therapeutic Interventions Therapeutic Interventions Balance Training,Gait Training ,Home Exercise Program,Joint Mobilizations,Manual Therapy, Neuromuscular Re-education, Orthotic/Prosthetic Management ,Patient/Caregiver Education, Self-Care/Home Management, Sensory Integration,Soft Tissue Mobilization,Taping, Therapeutic Activities, Therapeutic Exercises Modalities Cold Pack/Ice Massage,Electric Stimulation,Hot Packs Other Therapeutic Interventions Grade I-II mobilizations to 5th metatarsal due to previous fracture Next Visit Focus/Plan Next Note Type Treatment Note Next Visit Plan Add foot intrinsics with towel (foot scrunches, ankle inv/ev w/ towel vs marble). Progress ankle strengthening in standing, w/ band for inv/ev. Initiate wall squat vs STS/ squat training as long as pain free. side step, ankle proprioception. progress to standing glute, quad, ankle strength and proprioception Manual tx: ankle mob, 1st toe mob; avoid 5th toe mob d/t hx of fracture
--- NOTE | 2024-06-09 14:51 | PT-OP ANOTE ---
PT called and spoke to pt following PT appt yesterday. Pt reports that she had a small knot on the bottom of her foot that she noticed when she got out of bed yesterday am. States that she rubbed it and it popped. After the pop, she reports that it felt better immediately. Then went to PT session with ENDOSCOPY TECHNICIAN and informed ENDOSCOPY TECHNICIAN. Pt states that she has been walking, standing, done stairs. States no pain when asked. Reports no pain with exercises, just feels weird. PT recommended that pt monitor how her foot feels over weekend since not painful, get xray if pain occurs since near previous fracture site.
--- NOTE | 2024-07-13 15:43 | PT-OP ANOTE ---
PT called and spoke to pt about several cancelled appt due to shift changes at work. Pt declined to reschedule to different times. States that her foot hurts a little bit after standing on it all day. PT asked pt about self care for foot; pt not icing, elevating or sitting when able during day to rest but states that she will try that. PT asked if pt wanting to continue with PT vs discharge as last scheduled appt is beyond plan of care. Pt requests to discharge from PT. Pt reports compliance with HEP unprompted and states plans to continue with HEP. PT educated pt to follow up with PCP or referring provider if foot pain worsens or changes or for new PT referral if wants to return to PT in future. Pt verbalizes understanding. Pt will be discharged per her request
--- NOTE | 2024-07-13 15:53 | PT.OPDS ---
Current Diagnoses Pain in left ankle and joints of left foot (06/08/24) Stiffness of right hip, not elsewhere classified (06/08/24) Stiffness of left ankle, not elsewhere classified (06/08/24) Stiffness of left foot, not elsewhere classified (06/08/24) Other lack of coordination (06/08/24) Weakness (06/08/24) Sprain of unspecified ligament of left ankle, subsequent encounter (06/08/24) Visit Care Team Role Provider Type Stew Desai MD Attending Provider Non-Staff Family Provider Primary Care Provider Referring Provider Specialty: Family Practice Address: [address] [place] [address], [phone] Email: Visit Number Visit Number Discharge Summary PT-OP-B Current Condition Start: 05/19/24 12:53 Freq: Status: Active Protocol: Document 05/22/24 07:30 NM (Rec: 05/22/24 08:15 NM [id number]) Current Condition History of Current Condition Onset Date March 06, 2024 Current Complaints pain, walking, standing History of Current Condition Pt presents with L 5th met fracture. She has not worn the boot in 2 weeks. Had has repeat imaging. Pt fractured her foot after walking off of a curb at a [employer] tour in [place] with inversion motion. Pt had to walk a mile back to her hotel following fall. Pt iced and wrap. Pt was assessed for fracture 03/15 with imaging. She was placed in a boot, but pt declined using crutches. Pt has been wearing hiking boots. 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 Pt has had repeat imaging, showing healing; however, pt reports that she was told to continue wearing the boot if she has pain. She has not been wearing boot for about 2 weeks. Pt is a and lives alone. She reports that she is having difficulty with R hip pain (sitting, driving) s/ p wearing boot, walking (w/o boot), standing. Pt has several stairs in her home but reports no difficulty with stairs. Pt walked 2 airports yesterday in [place] boots, which have caused increased pain. PT-OP-C Subjective Start: 05/19/24 12:53 Freq: Status: Active Protocol: Document 06/08/24 14:37 SW (Rec: 06/08/24 16:01 SW [id number]) OP-PT Subjective Patient Comments Patient Comments Pt reports lump on bottom of foot with pain between sessions, felt a popping feeling, lump went down, pain has improved since. PT-OP-D Balance Start: 05/19/24 12:53 Freq: Status: Active Protocol: Document 05/22/24 07:30 NM (Rec: 05/22/24 08:15 NM [id number]) Balance Tests Single Limb Standing Single Limb- Right 30 sec Single Limb- Left 5 sec; pain reported at lateral foot PT-OP-F Manual Assessment Start: 05/19/24 12:53 Freq: Status: Active Protocol: Document 05/22/24 07:30 NM (Rec: 05/22/24 08:15 NM [id number]) Manual Assessments Soft Tissue Assessment Soft Tissue Mobility Assessment Tightness of L heel cords, R hip flexors Joint Mobility Assessment Joint Mobility Assessment Decreased mobility of L foot ( midfoot, forefoot) and ankle talocrural/subtalar. Mild limitations in R hip mobility with capsular restrictions Other Manual Assessments Other Manual Assessments Vibration testing: first tested RLE for comparison, then LLE along 5th met, medial malleolus, 1st toe, dorsal foot, lateral malleolus. Pt reports L foot feels different but reports no increase in pain especially along fracture site PT-OP-G Mobility & Gait Start: 05/19/24 12:53 Freq: Status: Active Protocol: Document 05/22/24 07:30 NM (Rec: 05/22/24 16:52 NM [id number]) OP Gait Assessment Gait Gait Assistance Required: Independent Distance (Feet) 150 Gait Deviations General Gait Pattern Antalgic,Decreased Feet Clearance Factors Limiting Gait Function Factors Limiting Gait Function Decreased Activity Tolerance, Decreased Strength,Limited Range of Motion,Pain Comments Gait Comments Limited L stance time, demos tendency to place weight off of lateral L foot PT-OP-H Neuro Start: 05/19/24 12:53 Freq: Status: Active Protocol: Document 05/22/24 07:30 NM (Rec: 05/22/24 08:15 NM [id number]) Sensation Evaluation Comments Summary Comments BLE intact equally to light touch sensation until L dorsal foot, mild hypersensitivity of L foot PT-OP-J Posture/Palpation/Skin Start: 05/19/24 12:53 Freq: Status: Active Protocol: Document 05/22/24 07:30 NM (Rec: 05/22/24 16:52 NM [id number]) Posture Evaluation Position Standing Head/C-Spine Posture Forward Head Shoulder Posture (L) Rounded,(R) Rounded Pelvis Posture Anteriorly Tilted Hip Posture (L) Externally Rotated,(R) Externally Rotated Knee Posture (L) Genu Valgus,(R) Genu Valgus Ankle/Foot Posture (L) Calcaneal Eversion,(R) Calcaneal Eversion Foot Arch (L) Medium Arch,(R) Medium Arch Palpation Assessment Location L ankle/foot Palpation Details Tenderness along 2-4 metatarsal heads, no tenderness along 5th metatarsal or along head No tenderness along proximal tibia/fibula, no tenderness along medial or lateral malleolus Skin Assessment Other Assessments Skin Assessment Comments Mild red dot along 5th metatarsal near head PT-OP-K Range of Motion Start: 05/19/24 12:53 Freq: Status: Active Protocol: Document 05/22/24 07:30 NM (Rec: 05/22/24 08:15 NM [id number]) Hip Goniometric Range of Motion Hip Right Internal Rotation 28 External Rotation 25 Left Internal Rotation 30 External Rotation 25 Ankle and Foot Goniometric Range of Motion Ankle and Foot Right Dorsiflexion with Knee Flexed 5 Plantarflexion 50 Inversion 30 Eversion 10 Left Dorsiflexion with Knee Flexed 3 Plantarflexion 35 Inversion 30 Eversion 10 Comments pain with PF PT-OP-L Special Tests Start: 05/19/24 12:53 Freq: Status: Active Protocol: Document 05/22/24 07:30 NM (Rec: 05/22/24 08:15 NM [id number]) Special Tests Hip Special Tests Ok Test Results + FADIR Test Results - TATA Test Results - PT-OP-M Strength Start: 05/19/24 12:53 Freq: Status: Active Protocol: Document 05/22/24 07:30 NM (Rec: 05/22/24 08:15 NM [id number]) Hip Strength Hip Manual Muscle Testing Right Flexion (L2) 4 Good Extension (S1) 4 Good Abduction 4 Good Adduction 4 Good External Rotation 4 Good Internal Rotation 4 Good Left Flexion (L2) 4- Good- Extension (S1) 4- Good- Abduction 4- Good- Adduction 4- Good- External Rotation 4- Good- Internal Rotation 4- Good- Knee Strength Knee Manual Muscle Testing Right Flexion (S2) 4 Good Extension (L3) 4 Good Left Flexion (S2) 4 Good Extension (L3) 4 Good Ankle/Foot Strength Ankle and Foot Manual Muscle Testing Right Dorsiflexion (L4) 4 Good Plantarflexion (S1) 3 Fair Inversion 4 Good Eversion (S1) 4 Good Comments 5 single leg heel Left Dorsiflexion (L4) 4- Good- Plantarflexion (S1) 3+ Fair+ Inversion 4- Good- Eversion (S1) 3+ Fair+ Comments 1 heel raise w/ pain mild pain with eversion due to hand placement PT-OP-T Assessment and Plan Start: 05/19/24 12:53 Freq: Status: Active Protocol: Document 07/13/24 15:47 NM (Rec: 07/13/24 15:53 NM [id number]) Physical Therapy Assessment Goals Four Impairment standing and ambulation time limited at work Short Term Goal (STG) Pt will be able to perform at least 10 steps up/down on standard stair with LLE leading without increase in L foot/ankle pain in order to demonstrate improved functional mobility STG Duration 5 weeks Life Manager Goal (LTG) Pt will report pain in L foot/ ankle <2/10 while performing standing or ambulation-related activities > 1 hour at work LTG Duration 10 weeks Three Impairment L ankle strength limited Short Term Goal (STG) Pt will be able to perform at least 10 B heel raises without increase in L foot/ankle pain or compensation in order to demonstrate improved strength for gait and weightbearing on her L foot STG Duration 6 weeks Life Manager Goal (LTG) If appropriate, pt will be able to perform at least 5 single leg heel raises bilaterally without increase in L foot/ankle pain in order to demonstrate improved strength for gait and weightbearing LTG Duration 10 weeks Two Impairment L ankle ROM limited Short Term Goal (STG) Pt will improve L ankle dorsiflexion AROM to greater than 5 deg for improved foot clearance during gait STG Duration 5 weeks Life Manager Goal (LTG) Pt will improve L ankle dorsiflexion to at least 8 deg AROM and L ankle plantarflexion to at least 40 deg in order to normalize mobility for gait LTG Duration 10 weeks One Impairment not performing HEP Prison Goal (LTG) Pt will report compliance with HEP at least 3x/wk in order to maintain progression with PT and transition to maintenance program LTG Duration 10 weeks Assessment Summary Assessment Pt has been seen x3 visits since evaluation in April for L foot pain following fracture. Due to work schedule , pt has been unable to attend appts and has canceled all subsequent appts. Pt has not been seen in clinic since . PT spoke to pt on phone on 07/13, where pt requested to discharge as she has cancelled all appt except for last appt which is outside plan of care. Physical Therapy Plan Frequency and Duration Frequency of Treatment 2x/Week Duration of treatment (weeks) 10 Plan of Care Start Date 05/22/24 Plan of Care End Date 08/04/24 Therapeutic Interventions Therapeutic Interventions Balance Training,Gait Training ,Home Exercise Program,Joint Mobilizations,Manual Therapy, Neuromuscular Re-education, Orthotic/Prosthetic Management ,Patient/Caregiver Education, Self-Care/Home Management, Sensory Integration,Soft Tissue Mobilization,Taping, Therapeutic Activities, Therapeutic Exercises Modalities Cold Pack/Ice Massage,Electric Stimulation,Hot Packs Other Therapeutic Interventions Grade I-II mobilizations to 5th metatarsal due to previous fracture Discharge Physical Therapy Discharge Reasons No Longer Attending PT Discharge Comments Pt has not been seen in clinic since 06/08. No progression toward goals. She had a change in work schedule. Has canceled 9 appt and is outside of compliance with attendance policy. Pt last remaining appt outside of plan of care. PT spoke to pt on 07/13, where pt requested discharge vs rescheduling appts. Pt reports still has foot pain after standing on her foot at work but has not been modifying available factors to reduce pain levels. PT educated pt on modifying activities for pain management and educated pt to follow up with provider if pain continues, worsens, or changes. Pt verbalizes understanding and will be discharged from PT per her request. Next Visit Focus/Plan Next Note Type Discharge Summary Next Visit Plan discharge from PT
== END 2024-07-14 09:21 | disposition home or self-care (01) ==
LOC: PHYS 14:30
PROVIDERS: Family Provider Family Medicine; PCP Family Medicine; Referring Provider Family Medicine; Visit Provider Family Medicine
DX: S93.402D Sprain of unspecified ligament of left ankle, subsequent encounter (principal); M25.572 Pain in left ankle and joints of left foot; M25.675 Stiffness of left foot, not elsewhere classified; M25.672 Stiffness of left ankle, not elsewhere classified; M25.651 Stiffness of right hip, not elsewhere classified; R53.1 Weakness; R27.8 Other lack of coordination
CPT/HCPCS: 97110; 97140; 97161